=== PATIENT | male | born 1980 | race Asian ===

== ENCOUNTER 2018-05-27 08:47 | Emergency (ER) | payer SELFPAY ==
[2018-05-27] MEDS ORDERED: BOOSTRIX IM ONE (09:10)
[2018-05-27] MEDS ORDERED: TYLENOL PO ONE (09:10)
--- NOTE | 2018-05-27 09:37 | XRay Report ---
LEFT WRIST, 2 views: HISTORY: Fall on outstretched hand. AP and lateral views demonstrate the carpal bones to be well mineralized with well preserved bony mineralization and interosseous joint spaces. The carpal and adjacent articular bones have normal contours. The surrounding soft tissues are unremarkable. IMPRESSION: Normal study.
--- NOTE | 2018-05-27 09:42 | Cat Scan Report ---
CT SCAN OF THE CERVICAL SPINE: HISTORY: Fall, loss of consciousness, neck injury. TECHNIQUE: Contiguous 1.25 mm axial images of the cervical spine were obtained. Sagittal and coronal reformatted images. FINDINGS: There is normal alignment of the cervical spine. The body, pedicles and posterior ligaments appear normal. No evidence of fracture or subluxation is seen. The spinal canal appears normal. The prevertebral soft tissues appear normal. IMPRESSION: Unremarkable CT of the cervical spine. No acute process is noted.
--- NOTE | 2018-05-27 09:43 | Cat Scan Report ---
CT HEAD WITHOUT CONTRAST: HISTORY: Fall, loss of consciousness, head injury. TECHNIQUE: Sequential 2.5mm CT images. COMPARISON: none. FINDINGS: Cerebral Parenchyma: Within normal limits. Cerebellum: Within normal limits. Brainstem: Within normal limits. Ventricles: Normal. Cavum septum verge is noted. Sella: Normal. Extra-axial spaces: Normal. Basal Cisterns: Normal. Intracranial Hemorrhage: None. Midline Shift: None. Calvarium: Normal. Sinuses: Normal. Mastoid Air Cells: Normal. Visualized Orbits: Normal. IMPRESSION: Cranial CT scan within normal limits.
[2018-05-27] MEDS ORDERED: NORCO 7.5/325 PO ONE (09:55)
--- NOTE | 2018-05-27 09:56 | Emergency Department Report ---
ED Head Injury/Laceration HPI - HPI Occurred When: Today Mechanism: Fall Location: Occipital Pain: Mild Tetanus Status: Not up to Date Symptoms: Loss of Consciousness: No, Nausea: No, Blurred Vision: No, Unusual Behavior: Yes, Headache: Yes (family), Swelling: Yes, Bruising: Yes, Break in Skin: Yes, Bleeding: Yes Other History: Supriya is a 38-year-old -[place] male who fell down the steps this morning. He states that he was in a hurry to get to work and he fell down 4 out for stairs hitting the back of his head. He has 2 lacerations to the back of his head and is complaining of left hand pain. He also has an abrasion above his left eye. Patient states that he thinks that he got right up and did not lose consciousness. Family states the patient is acting oddly. ED General PMH - Social History Smoking Status: Current Every Day Smoker ED Review of Systems ROS: Stated complaint: OPEN WOUND ON HEAD/BROKEN HAND Other details as noted in HPI Comment: All other systems reviewed and negative Constitutional: denies: see HPI Eyes: denies: eye pain ENT: denies: throat pain Respiratory: denies: cough Cardiovascular: denies: palpitations Endocrine: denies: excessive sweating Gastrointestinal: denies: nausea Genitourinary: denies: urgency Musculoskeletal: denies: back pain Skin: as per HPI, lesions. denies: rash Neurological: as per HPI, headache, other (fam states he is not acting like himself) Psychiatric: denies: anxiety, depression Hematological/Lymphatic: denies: easy bleeding Head Inj w/lac Physical Exam - Exam General: Vital signs noted. No distress. Alert and acting appropriately. Head: Yes PERRL, Yes Abrasion (lac), No Hemotympanum, No Hematoma/Ecchymosis, No Epistaxis, No Stepoff/Deformity, No Foreign Body Wound Length (cm): 4 Laceration Location: Occipital Chest, Abd, & Ext: Yes Clear Lung Sounds, Yes Regular Heart Rhythm, No Neck Pain, No Chest Injury/Pain, No Heart Murmur, No Abdominal Tenderness, No Back Tenderness, No Extremity Injury Neuroligical (Head Inj W/O Lac: Yes Normal Speech, Yes Normal Gait, No Lethargy, No Disorientation, No Focal Numbness, No Focal Weakness Exam: a/o. ambulatory. CN intact. PERRL. s1s2. lungs CTA. no c/t/l tenderness on palpation. abdomen soft non tender. lacs to back of head - Laceration /Wound Repair head LAC 1 DISTAL Wound Location: head Wound Length (cm): 4 Wound's Depth, Shape: linear Wound Explored: clean Irrigated w/ Saline (ccs): 50 Betadine Prep?: Yes Anesthesia: 1% Lidocaine Volume Anesthetic (ccs): 5 Wound Debrided: minimal Sterile Dressing Applied?: Yes Progress: NO SUTURES. NANCY WERE USED. 7 TO THE LAC NUMBER 1 LAC NO 2, MOST PROX Wound Location: head Wound Length (cm): 3 Wound's Depth, Shape: superficial Wound Explored: clean Irrigated w/ Saline (ccs): 50 Betadine Prep?: Yes Anesthesia: 1% Lidocaine Wound Debrided: minimal Layer Closure?: No Sterile Dressing Applied?: Yes Progress: 5 NANCY IN WOUND NOTE BOTH WOUNDS WERE WELL APPROXIMATED ON CLOSURE BOTH WOUNDS WERE CLEANED AND DRESSED ON DC ED Disposition Clinical Impression: Fall, Laceration, Abrasion, Wrist pain Disposition: DC-01 TO HOME OR SELFCARE Is pt being admited?: No Does the pt Need Aspirin: No Condition: Stable Instructions: Laceration (ED) Additional Instructions: REST HYDRATE WELL WITH WATER RETURN IN 7 DAYS FOR NANCY TO BE REMOVED WASH WOUNDS WITH SOAP AND WATER EDWIN TO HAND FOR COMFORT OVER THE COUNTER TYLENOL AND MOTRIN FOR MILD PAIN ULTRAM FOR SEVERE PAIN FOLLOW UP PCP IF PAIN PERSISTS Prescriptions: traMADol [Ultram] 50 mg PO Q6HR PRN #10 tablet PRN Reason: Pain Referrals: PRIMARY MD MARYAN [Primary Care Provider] - 3-5 Days CHLOE MARSHALL MD [Staff Physician] - 3-5 Days Time of Disposition: 10:17
[2018-05-27] MEDS ORDERED: XYLOCAINE 2% INFILTRATI ONE ×2 (10:11)
[2018-05-27 10:49] VITALS: BP 116/96
== END 2018-05-27 10:51 | disposition home or self-care (01) ==
LOC: ED 08:47
DX: S01.01XA Laceration without foreign body of scalp, initial encounter (principal); S60.812A Abrasion of left wrist, initial encounter; F17.200 Nicotine dependence, unspecified, uncomplicated; W10.8XXA Fall (on) (from) other stairs and steps, initial encounter; Y93.89 Activity, other specified; Y92.89 Other specified places as the place of occurrence of the external cause; Y99.8 Other external cause status
CPT/HCPCS: 70450; 72125; 90471; 90715; 99284

== ENCOUNTER 2018-06-02 08:51 | Emergency (ER) | payer SELFPAY ==
--- NOTE | 2018-06-02 09:23 | Emergency Department Report ---
Suture/Staple Removal - [facility] Chief Complaint: Laceration/Recheck/Suture Stated Complaint: STICHES REMOVAL Time Seen by Provider: 06/02/18 09:21 When Sutures or Ophir Placed: 5-7 Days Ago Wound Location: Here last week sp fall with shaheen to back of head. here for removal ED Review of Systems ROS: Stated complaint: STICHES REMOVAL Other details as noted in HPI Comment: All other systems reviewed and negative Constitutional: denies: chills Eyes: denies: as per HPI ENT: denies: throat pain Respiratory: denies: orthopnea Cardiovascular: denies: dyspnea on exertion Endocrine: denies: intolerance to cold Gastrointestinal: denies: abdominal pain Genitourinary: denies: urgency Musculoskeletal: denies: back pain Skin: lesions. denies: rash Neurological: denies: weakness Psychiatric: denies: anxiety ED Past Medical Hx - Past Medical History Previous Medical History?: No - Surgical History Past Surgical History?: No - Social History Smoking Status: Current Every Day Smoker - Medications Home Medications: Home Medications Medication Instructions Recorded Confirmed Last Taken Type traMADol [Ultram] 50 mg PO Q6HR PRN #10 tablet 05/27/18 Unknown Rx Suture Removal Exam - Exam General: Vital signs noted. No distress. Alert and acting appropriately. Wound: No Pathologic Erythema, No Tenderness, No Drainage, No Pus, No Wound Dehiscence Other Systems: All other systems reviewed and are unremarkable. HR 100 on exam ED Course Vital Signs 06/02/18 08:57 Temperature 98.1 F Pulse Rate 103 H Respiratory 18 Rate Blood Pressure 127/87 O2 Sat by Pulse 99 Oximetry ED Recheck MDM - Differential Diagnosis Suture/Staple Removal - Medical Decision Making staple removal sp shaheen approx 1 week ago no symptoms or signs of infection Critical care attestation.: If time is entered above; I have spent that time in minutes in the direct care of this critically ill patient, excluding procedure time. ED Disposition Clinical Impression: Removal of staple Disposition: - TO HOME OR SELFCARE Is pt being admited?: No Does the pt Need Aspirin: No Condition: Stable Referrals: PRIMARY CARE, [Primary Care Provider] - 3-5 Days Time of Disposition: 09:22
== END 2018-06-02 09:47 | disposition home or self-care (01) ==
LOC: ED 08:51

== ENCOUNTER 2018-07-03 10:23 | Emergency (ER) | payer SELFPAY ==
[2018-07-03 10:39] VITALS: BP 115/74
--- NOTE | 2018-07-03 13:48 | Emergency Department Report ---
ED ENT HPI - General Chief complaint: Skin/Abscess/Foreign Body Stated complaint: TONSIL SWOLLEN Time Seen by Provider: 07/03/18 13:27 Source: patient Mode of arrival: Ambulatory Limitations: No Limitations - History of Present Illness Initial comments: This is a 38-year-old male who presents with sore throat for 2 days. Patient reports discomfort with swallowing. He noticed white spots to the tonsils this morning. Patient states there is chills and sweats overnight. He is currently taking and the ultrasound relief. He denies sick contacts, difficulty swallowing, drooling, or cough. MD complaint: sore throat Onset/Timin -: days(s) Location: throat Severity: moderate Severity scale (0 -10): 7 Quality: aching Consistency: intermittent Improves with: none Worsens with: swallowing, eating Associated Symptoms: pain with swallowing, sore throat. denies: fever, cough, gum swelling, toothache, tinnitus, hearing loss, discharge from ear, rhinorrhea - Related Data Previous Rx's Medication Instructions Recorded Last Taken Type traMADol [Ultram] 50 mg PO Q6HR PRN #10 tablet 05/27/18 Unknown Rx Penicillin V Potassium 500 mg PO BID #20 tablet 07/03/18 Unknown Rx methylPREDNISolone [Medrol] 4 mg PO DAILY #1 tab.ds.pk 07/03/18 Unknown Rx Allergies Allergy/AdvReac Type Severity Reaction Status Date / Time No Known Allergies Allergy Verified 07/03/18 10:36 ED Dental HPI - General Chief complaint: Skin/Abscess/Foreign Body Stated complaint: TONSIL SWOLLEN Time Seen by Provider: 07/03/18 13:27 Source: patient Mode of arrival: Ambulatory Limitations: No Limitations - Related Data Previous Rx's Medication Instructions Recorded Last Taken Type traMADol [Ultram] 50 mg PO Q6HR PRN #10 tablet 05/27/18 Unknown Rx Penicillin V Potassium 500 mg PO BID #20 tablet 07/03/18 Unknown Rx methylPREDNISolone [Medrol] 4 mg PO DAILY #1 tab.ds.pk 07/03/18 Unknown Rx Allergies Allergy/AdvReac Type Severity Reaction Status Date / Time No Known Allergies Allergy Verified 07/03/18 10:36 ED Review of Systems ROS: Stated complaint: TONSIL SWOLLEN Other details as noted in HPI Constitutional: chills. denies: fever ENT: throat pain. denies: ear pain, dental pain, hearing loss, epistaxis, congestion Respiratory: denies: cough, shortness of breath, wheezing Cardiovascular: denies: chest pain, palpitations Gastrointestinal: denies: abdominal pain, nausea, diarrhea Skin: denies: rash, lesions Neurological: denies: headache, weakness, paresthesias Psychiatric: denies: anxiety, depression ED Past Medical Hx - Social History Smoking Status: Current Every Day Smoker Substance Use Type: None - Medications Home Medications: Home Medications Medication Instructions Recorded Confirmed Last Taken Type traMADol [Ultram] 50 mg PO Q6HR PRN #10 tablet 05/27/18 Unknown Rx Penicillin V Potassium 500 mg PO BID #20 tablet 07/03/18 Unknown Rx methylPREDNISolone [Medrol] 4 mg PO DAILY #1 tab.ds.pk 07/03/18 Unknown Rx ED Physical Exam - General Limitations: No Limitations General appearance: alert, in no apparent distress - ENT ENT exam: Present: mucous membranes moist, TM's normal bilaterally, normal external ear exam, other (erythematous and large with exudate, uvula midline, erythematous posterior pharynx). Absent: normal orophraynx - Neck Neck exam: Present: normal inspection, lymphadenopathy (anterior cervical tenderness, mobile) - Respiratory Respiratory exam: Present: normal lung sounds bilaterally. Absent: respiratory distress - Cardiovascular Cardiovascular Exam: Present: regular rate, normal rhythm. Absent: systolic murmur, diastolic murmur, rubs, gallop - GI/Abdominal GI/Abdominal exam: Present: soft, normal bowel sounds - Neurological Exam Neurological exam: Present: alert, oriented X3 - Psychiatric Psychiatric exam: Present: normal affect, normal mood - Skin Skin exam: Present: warm, dry, intact, normal color. Absent: rash ED Course Vital Signs 07/03/18 10:37 Temperature 99.5 F Pulse Rate 84 Respiratory 18 Rate Blood Pressure 115/74 O2 Sat by Pulse 99 Oximetry ED Medical Decision Making - Lab Data Lab Results 07/03/18 Range/Units 13:40 Group A Strep Rapid Negative (Negative) - Medical Decision Making This is a 38 y.o. male that presents with sore throat and enlarged cervical lymph nodes 2 days. Patient examined by me and stable. No distress noted. Centor score for strep is 3 points 28% - 35%. Rapid strep obtained and negative, throat culture pending. Vitals stable. Given Solu-Medrol 125 mg IM once in ER. Start Medrol Dosepak and penicillin.. Take Tylenol or ibuprofen for pain. Discussed plan with patient and he agreed with plan to treat outpatient. Discharged home. Return to work tomorrow. Follow up with PCP in 48-72 hours. Critical care attestation.: If time is entered above; I have spent that time in minutes in the direct care of this critically ill patient, excluding procedure time. ED Disposition Clinical Impression: Sore throat Acute pharyngitis Qualifiers: Pharyngitis/tonsillitis etiology: unspecified etiology Qualified Code(s): J02.9 - Acute pharyngitis, unspecified Disposition: TO HOME OR SELFCARE Is pt being admited?: No Does the pt Need Aspirin: No Condition: Stable Instructions: Pharyngitis (ED) Additional Instructions: Expect symptoms to improve within 3 or 4 days. There is no need for bed rest or isolation. Use Tylenol or ibuprofen for symptoms of sore throat, headache, and fever. Return to work in 24 hours of taking antibiotics. Follow up with Primary Care Provider in 48-72 hours. Prescriptions: methylPREDNISolone [Medrol] 4 mg PO DAILY #1 tab.ds.pk Penicillin V Potassium 500 mg PO BID #20 tablet [facility] [Primary Care Provider] - 3-5 Days [facility] [Outside] - 3-5 Days [facility] [Outside] - 3-5 Days Forms: Work/School Release Form(ED) Time of Disposition: 14:25
[2018-07-03] MEDS ORDERED: SOLU-Medrol IM ONE (14:09)
== END 2018-07-03 14:28 | disposition home or self-care (01) ==
LOC: ED 10:23
DX: J02.9 Acute pharyngitis, unspecified (principal); F17.200 Nicotine dependence, unspecified, uncomplicated
CPT/HCPCS: 87116; 87430; 96372; 99283; J2930

== ENCOUNTER 2020-08-11 18:31 | Emergency (ER) | payer SELFPAY ==
[2020-08-11 19:47] VITALS: BP 134/103
--- NOTE | 2020-08-11 20:42 | XRay Report ---
CHEST 2 VIEWS INDICATION: cough. COMPARISON: None FINDINGS: Support devices: None. Heart: Within normal limits. Lungs: No acute air space or interstitial disease. Pleura: No significant pleural effusion. No pneumothorax. Additional findings: None. IMPRESSION: 1. No acute findings. Signer Name: Marty Meyer MD Signed: 08/11/2020 8:37 PM Workstation Name: [id number]
[2020-08-11 20:54] LABS: Basophils % (Auto) 0.5 % (0.0-1.8); Eosinophils # (Auto) 0.2 K/mm3 (0.0-0.4); Eosinophils % (Auto) 3.4 % (0.0-4.3); Hematocrit 42.4 % (35.5-45.6); Hemoglobin 14.5 gm/dl (11.8-15.2); Lymphocytes # (Auto) 2.8 K/mm3 (1.2-5.4); Lymphocytes % (Auto) 38.4 % (13.4-35.0); Mean Corpuscular HGB Conc 34 % (32-34); Mean Corpuscular Volume 84 fl (84-94); Monocytes # (Auto) 1.1 K/mm3 (0.0-0.8); Monocytes % (Auto) 14.8 % (0.0-7.3); Platelet Count 262 K/mm3 (140-440); Red Blood Count 5.06 M/mm3 (3.65-5.03); Red Cell Distribution Width 15.2 % (13.2-15.2)
[2020-08-11 21:16] LABS: Alanine Aminotransferase 28 units/L (7-56); Albumin 4.6 g/dL (3.9-5); BUN/Creatinine Ratio 7; Blood Urea Nitrogen 6 mg/dL (9-20); Calcium 8.9 mg/dL (8.4-10.2); Hemolysis Index 3
--- NOTE | 2020-08-11 21:40 | Emergency Department Report ---
ED Abdominal Pain HPI - General Chief Complaint: Abdominal Pain Stated Complaint: HEAD/STOMACH/COUGH Source: patient Mode of arrival: Ambulatory Limitations: No Limitations - History of Present Illness Initial Comments: Patient is a 40-year-old -Maldivian male with a history of chronic tobacco abuse and hypertension who presents to the ED with complaint of acute onset per sistent diffuse abdominal pain, diarrhea, headache and mild dry cough for the last 2 days intermittently. Patient states that in the last 12 hours he has had up to 5 episodes of diarrhea. Patient states that the last meal he ate was a sandwich from a fast food restaurant. Patient denies dizziness, syncope, chest pain, shortness of breath, fever, chills, dysuria, urinary frequency and urgency, hemoptysis, hematochezia, hematemesis, nausea and vomiting or sore throat, nasal and sinus congestion. MD Complaint: abdominal pain, other (Diarrhea, headache and cough) -: Sudden, days(s) (2) Location: periumbilical Radiation: none Migration to: no migration Severity: moderate Severity scale (0 -10): 3 Quality: aching, dull Consistency: intermittent Improves With: nothing Worsens With: nothing Context: possible food poisoning Associated Symptoms: denies other symptoms, diarrhea, anorexia. denies: nausea, vomiting, fever, chills, constipation, dysuria, hematemesis, hematochezia, melena, hematuria - Related Data Previous Rx's Medication Instructions Recorded Last Taken Type traMADoL [Ultram] 50 mg PO Q6HR PRN #10 tablet 05/27/18 Unknown Rx Penicillin V Potassium 500 mg PO BID #20 tablet 07/03/18 Unknown Rx methylPREDNISolone [Medrol] 4 mg PO DAILY #1 tab.ds.pk 07/03/18 Unknown Rx Dicyclomine [Bentyl] 20 mg PO Q6H PRN #24 tablet 08/11/20 Unknown Rx Famotidine [Pepcid] 20 mg PO BID #30 tablet 08/11/20 Unknown Rx Allergies Allergy/AdvReac Type Severity Reaction Status Date / Time No Known Allergies Allergy Verified 07/03/18 10:36 ED Review of Systems ROS: Stated complaint: HEAD/STOMACH/COUGH Other details as noted in HPI Constitutional: denies: chills, fever Eyes: denies: eye pain, eye discharge, vision change ENT: denies: ear pain, throat pain Respiratory: cough. denies: shortness of breath, wheezing Cardiovascular: denies: chest pain, palpitations Endocrine: no symptoms reported Gastrointestinal: abdominal pain, diarrhea. denies: nausea, vomiting Genitourinary: denies: urgency, dysuria Musculoskeletal: denies: back pain, joint swelling, arthralgia Skin: denies: rash, lesions Neurological: headache. denies: weakness, paresthesias Psychiatric: denies: anxiety, depression Hematological/Lymphatic: denies: easy bleeding, easy bruising ED Past Medical Hx - Past Medical History Previous Medical History?: Yes Hx Hypertension: Yes - Social History Smoking Status: Current Every Day Smoker Substance Use Type: Marijuana - Medications Home Medications: Home Medications Medication Instructions Recorded Confirmed Last Taken Type traMADoL [Ultram] 50 mg PO Q6HR PRN #10 tablet 05/27/18 Unknown Rx Penicillin V Potassium 500 mg PO BID #20 tablet 07/03/18 Unknown Rx methylPREDNISolone [Medrol] 4 mg PO DAILY #1 tab.ds.pk 07/03/18 Unknown Rx Dicyclomine [Bentyl] 20 mg PO Q6H PRN #24 tablet 08/11/20 Unknown Rx Famotidine [Pepcid] 20 mg PO BID #30 tablet 08/11/20 Unknown Rx ED Physical Exam - General Limitations: No Limitations General appearance: alert, in no apparent distress - Head Head exam: Present: atraumatic, normocephalic, normal inspection - Eye Eye exam: Present: normal appearance, PERRL, EOMI Pupils: Present: normal accommodation - ENT ENT exam: Present: normal exam, normal orophraynx, mucous membranes moist, TM's normal bilaterally, normal external ear exam - Neck Neck exam: Present: normal inspection, full ROM - Respiratory Respiratory exam: Present: normal lung sounds bilaterally. Absent: respiratory distress, wheezes, rales, rhonchi, chest wall tenderness, accessory muscle use, decreased breath sounds, prolonged expiratory - Cardiovascular Cardiovascular Exam: Present: regular rate, normal rhythm, normal heart sounds. Absent: systolic murmur, diastolic murmur, rubs, gallop - GI/Abdominal GI/Abdominal exam: Present: soft, normal bowel sounds. Absent: tenderness, guarding, rebound, hyperactive bowel sounds, hypoactive bowel sounds, organomegaly, mass - Extremities Exam Extremities exam: Present: normal inspection, full ROM, normal capillary refill - Back Exam Back exam: Present: normal inspection, full ROM. Absent: tenderness, CVA tenderness (R), CVA tenderness (L), muscle spasm, paraspinal tenderness, vertebral tenderness - Neurological Exam Neurological exam: Present: alert, oriented X3, CN II-XII intact, normal gait, reflexes normal - Psychiatric Psychiatric exam: Present: normal affect, normal mood - Skin Skin exam: Present: warm, dry, intact, normal color. Absent: rash ED Course Vital Signs 08/11/20 19:40 Temperature 98.4 F Pulse Rate 85 Respiratory 20 Rate Blood Pressure 134/103 O2 Sat by Pulse 100 Oximetry ED Medical Decision Making - Lab Data Result diagrams: 08/11/20 20:17 08/11/20 20:17 - Radiology Data Radiology results: report reviewed, image reviewed [address] [address] XRay Report Signed Patient: REYNOLD BENSON MR#: [id number] : 1980 Acct:[id number] Age/Sex: 40 / M ADM Date: 08/11/20 Loc: ED Attending Dr: Ordering Physician: MARY JANE SHEARER Date of Service: 08/11/20 Procedure(s): XR chest routine 2V Accession Number(s): [id number] cc: MARY JANE SHEARER Fluoro Time In Minutes: CHEST 2 VIEWS INDICATION: cough. COMPARISON: None FINDINGS: Support devices: None. Heart: Within normal limits. Lungs: No acute air space or interstitial disease. Pleura: No significant pleural effusion. No pneumothorax. Additional findings: None. IMPRESSION: 1. No acute findings. Signer Name: Marty Meyer MD Signed: 08/11/2020 8:37 PM Workstation Name: [id number] Transcribed By: WG Dictated By: Marty Meyer MD Electronically Authenticated By: Marty Meyer MD Signed Date/Time: 08/11/202036 DD/ 36 TD/TT: Print - Medical Decision Making This is a 40-year-old -Maldivian male with a history of chronic tobacco abuse and hypertension who presents to the ED with complaint of acute onset persistent diffuse abdominal pain, diarrhea, headache and mild dry cough for the last 2 days intermittently. Patient states that in the last 12 hours he has had up to 5 episodes of diarrhea. Patient states that the last meal he ate was a sandwich from a fast food restaurant. In the ED, patient is alert and oriented x3 and is not in distress with normal vital signs. Lab test results were reviewed and are all nonactionable. Chest x-ray shows no acute cardiopulmonary abnormalities or pneumonitis. Patient's symptoms are due to viral gastroenteritis from food poisoning after eating at a fast food restaurant 2 days ago. Patient was therefore discharged home on medications and advised to follow-up with his primary care physician in 5 to 7 days for reevaluation. Patient was meanwhile advised to maintain a clear liquid diet while taking medications for the next 12 to 24 hours and to return to the ED immediately if symptoms get worse. - Differential Diagnosis Viral gastroenteritis; dehydration; viral bronchitis; GERD Critical care attestation.: If time is entered above; I have spent that time in minutes in the direct care of this critically ill patient, excluding procedure time. ED Disposition Clinical Impression: Viral diarrhea, Viral gastroenteritis Abdominal pain Qualifiers: Abdominal location: generalized Qualified Code(s): R10.84 - Generalized abdominal pain Disposition: DC-01 TO HOME OR SELFCARE Is pt being admited?: No Does the pt Need Aspirin: No Condition: Stable Instructions: Diarrhea, Adult, [id number], Viral Gastroenteritis, Adult, [id number], Abdominal Pain, Adult, [id number] Additional Instructions: All lab test results were reviewed and are all nonactionable. The chest x-ray shows no acute cardiopulmonary abnormalities or pneumonitis. Your symptoms are likely due to a viral syndrome from food poisoning and upper respiratory infection. Therefore maintain a clear liquid diet for 12 to 24 hours, drink ple nty of fluids, take medication as needed. Prescriptions: Dicyclomine [Bentyl] 20 mg PO Q6H PRN #24 tablet PRN Reason: Abdominal pain Famotidine [Pepcid] 20 mg PO BID #30 tablet Referrals: [facility] [Provider Group] - 3-5 Days Forms: Work/School Release Form(ED) Time of Disposition: 21:40 Print Language: ANGOLAN
== END 2020-08-11 21:45 | disposition home or self-care (01) ==
LOC: ED 18:31
DX: A08.4 Viral intestinal infection, unspecified (principal); R10.33 Periumbilical pain; I10 Essential (primary) hypertension; F17.200 Nicotine dependence, unspecified, uncomplicated; F12.10 Cannabis abuse, uncomplicated; Z79.899 Other long term (current) drug therapy
CPT/HCPCS: 36415; 71046; 80053; 83690; 85025